=== PATIENT | male | born 1990 ===

== ENCOUNTER 2018-11-07 23:52 | Emergency (ER) | payer SELFPAY ==
[2018-11-08] VITALS: BP 127/83; PULSE 87; RESP 18; TEMP 98.7; O2SAT 100
--- NOTE | 2018-11-08 00:26 | C.PDOC ---
History Of Present Illness 28 year old male presents to the ER with a complaint of body aches, fever, chills, and dry cough since yesterday. Patient states his son has similar symptoms and was started on flu medication. Denies any other complaints. HPI: Influenza Time Seen by Provider: 11/08/18 00:05 Chief Complaint: Flu-like Symptoms History Per: Patient Exam Limitations: no limitations Have you had recent travel within the past 21 days to any of the following countries: [place], [place], [place] or [place]?: No Onset/Duration Of Symptoms: Days Symptoms include: fever, bodyaches, cough, other (Chills) Sick Contacts (Context): Family Member(s) Past Medical History Reviewed: Historical Data, Nursing Documentation, Vital Signs Vital Signs: Last Vital Signs Temp 98.7 F 11/07/18 23:57 Pulse 87 11/07/18 23:57 Resp 18 11/07/18 23:57 BP 127/83 11/07/18 23:57 Pulse Ox 100 11/07/18 23:57 Surgical History: Appendectomy Family History: States: No Known Family Hx - Social History Hx Alcohol Use: No Hx Substance Use: Yes - Immunization History Hx Tetanus Toxoid Vaccination: No Hx Influenza Vaccination: No Hx Pneumococcal Vaccination: No Review Of Systems Constitutional: Positive for: Fever, Chills ENT: Negative for: Nose Discharge, Nose Congestion Respiratory: Positive for: Cough Gastrointestinal: Negative for: Nausea, Vomiting, Diarrhea Musculoskeletal: Positive for: Other (Body aches) Physical Exam - Physical Exam Appears: Non-toxic Skin: Normal Color, Warm, Dry Head: Atraumatic, Normacephalic Eye(s): bilateral: Normal Inspection Ear(s): Bilateral: Normal Nose: Normal Oral Mucosa: Moist Throat: Normal, No Erythema, No Exudate Neck: Normal, Supple Chest: Symmetrical, No Tenderness Cardiovascular: Rhythm Regular Respiratory: Normal Breath Sounds, No Rales, No Rhonchi, No Wheezing Gastrointestinal/Abdominal: Soft, No Tenderness Back: No CVA Tenderness Neurological/Psych: Oriented x3, Normal Speech - ECG O2 Sat by Pulse Oximetry: 100 (room air) Pulse Ox Interpretation: Normal - Progress ED Course And Treament: Based on patient's clinical presentation and symptoms, he will be treated for flu, tamiflu given now and Rx given to take home, he is resting comfortably in no acute distress, vitals are stable, will discharge home with instructions to follow up with PMD. 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 - Scribe Statement The provider has reviewed the documentation as recorded by the Scribever Mckee All medical record entries made by the Rioibever were at my direction and personally dictated by me. I have reviewed the chart and agree that the record accurately reflects my personal performance of the history, physical exam, medical decision making, and the department course for this patient. I have also personally directed, reviewed, and agree with the discharge instructions and disposition.
== END 2018-11-08 00:33 | disposition home or self-care (01) ==
LOC: C.ER 23:52 → SUPCPDRO 23:52 → C.ER 11-08 00:33
DX: J11.1 Influenza due to unidentified influenza virus with other respiratory manifestations (principal)